=== PATIENT | male | born 1955 | race Caucasian/White ===

== ENCOUNTER 2016-03-12 15:29 | Emergency (ER) | payer OTHER, BC ==
[2016-03-12 16:18] LABS: BASO # 0.1 K/mm3 (0.0-0.2); BASO % 1.5 % (0.0-1.0); EOS # 0.3 K/mm3 (0.0-0.50); EOS % 4.5 % (0.0-3.0); LARGE UNSTAINED CELL # 0.1 K/mm3 (0.0-0.4); LARGE UNSTAINED CELL % 2.4 % (0.0-4.0); LYMPH # 1.7 K/mm3 (1.5-4.5); LYMPH % 27.6 % (24.0-44.0); MEAN CORPUSCULAR HEMOGLOBIN 29.1 pg (27.0-33.0); MEAN CORPUSCULAR HGB CONC 32.4 g/dl (32.0-36.5); MEAN CORPUSCULAR VOLUME 89.9 fl (80.0-96.0); MONO # 0.3 K/mm3 (0.0-0.8); MONO % 5.8 % (0.0-5.0); NEUTROPHILS # 3.3 K/mm3 (1.8-7.7); NEUTROPHILS % 58.2 % (36.0-66.0); PLATELET COUNT, AUTOMATED 217 k/mm3 (150-450); RED CELL DISTRIBUTION WIDTH 12.9 % (11.5-14.5); WHITE BLOOD COUNT 5.7 K/mm3 (4.0-10.0)
--- NOTE | 2016-03-12 16:19 | EDDOCDS ---
Physician Documentation [facility] Name: Sekou Armstrong Age: 60 yrs Sex: Male : 1955 Arrival Date: 03/12/2016 Time: 15:29 Bed I6 / 28 Private MD: Juan R Márquez MD Disposition: 03/12/16 16:10 Discharged to Home/Self Care. Impression: Contact with hypodermic needle - #15 scapel. - Condition is Stable. - Discharge Instructions: Needle Stick Injury, Tudd-ax-Ipnh. - Medication Reconciliation, Local Pharmacy Hours form. - Follow up: . Employee Health Office; When: Call to arrange an appointment; Reason: Further diagnostic work-up, Recheck today's complaints, Continuance of care. - Problem is new. - Symptoms have improved. Historical: - Allergies: no known allergies; - Home Meds: 1. doxycycline hyclate 150 mg oral TbEC once daily 2. Omeprazole Oral once daily - PMHx: Atrial Fib; - PSHx: Hernia repair; Tonsillectomy; Cardiac Ablation; lethroplasty; - Social history: Smoking status: Patient states was never smoker of tobacco. No barriers to communication noted, The patient speaks fluent Nepali, Speaks appropriately for age. - Family history: Not pertinent. - : The pt / caregiver states he / she is not on anticoagulants. Home medication list is obtained from the patient. - Exposure Risk Screening:: None identified. Vital Signs: 03/12 15:31 BP 158 / 87; Pulse 69; Resp 18 S; Temp 97.1(O); Pulse Ox 99% on R/A; Weight 90.72 kg / gr2 200 lbs (R); Height 6 ft. 1 in. (185.42 cm) (R); Pain 4/10; 15:31 Body Mass Index 26.39 (90.72 kg, 185.42 cm) gr2 MDM: 15:39 Consult Employee Health (M-F, 7:30a-4p) or Nursing Clinical Social Worker for source patient ef1 testing ordered. 15:39 Place PEP packet on chart ordered. ef1 15:41 CBC with Diff Ordered. EDMS 15:41 Complete Comphrensive Metabolic Ordered. EDMS 15:41 HIV EXPOSED(ONLY WITH PEP SET) Ordered. EDMS 15:41 Hepatitis B Surface Antibody Ordered. EDMS 15:41 Hepatitis B Surface Antigen Ordered. EDMS 15:44 HEPATITIS C ANTIBODY Ordered. EDMS 15:58 [place] [place] Agreement was scanned into [employer] and attached to record. gjb 15:58 Financial registration complete. gjb 16:12 Wound Care ordered. ef1 16:12 Consult Employee [facility] (-F, 7:30a-4p) or Nursing Clinical Social Worker for source patient ef1 testing complete. Signatures: Dispatcher [employer] EDHI Treasure Doll RN RN dls Feola, Erica, PA-C PA-C ef1 Margy Mccarty RN RN ead Beck, Gabriela gjb The chart was reviewed and I authenticate all verbal orders and agree with the evaluation and treatment provided.Corrections: (The following items were deleted from the chart) 15:44 15:41 HEPATITIS C ANTIBODY+LAB ordered. EDHI EDMS 15:46 15:38 PMHx: lethroplasty; ead ead Attachments: 15:58 [place] [place] Payment Agreement [facility] MTDD
--- NOTE | 2016-03-12 16:19 | EDDOCDS ---
Nurse's Notes [facility] Name: Sekou Armstrong Age: 60 yrs Sex: Male : 1955 Arrival Date: 03/12/2016 Time: 15:29 Bed I6 / Private MD: Juan R Márquez MD Diagnosis: Contact with hypodermic needle-#15 scapel Presentation: 03/12 15:35 Presenting complaint: Patient states: pt operating in OR today, accidently cut self ead with sharp tool, cut to left middle finger. no laceration or open wound noted. Adult Sepsis Screening: The patient does not have new or worsening altered mentation. Patient's respiratory rate is less than 22. Systolic blood pressure is greater than 100. Patient has a qSOFA score of 0- Negative Sepsis Screen. Suicide/Homicide risk assessment- the patient denies having any suicidal and/or homicidal ideations and does not present with any other emotional, behavioral or mental health complaints. Status: Patient is not a cash register servicer or dependent. Transition of care: patient was not received from another setting of care. 15:35 Acuity: ROSITA Level 3 ead 15:35 Method Of Arrival: Walkin/Carried/Asstd ead Triage Assessment: 15:38 General: Appears in no apparent distress, comfortable, well nourished, well groomed, ead Behavior is appropriate for age, cooperative, pleasant. Pain: Denies pain. Neurological: No deficits noted. Respiratory: No deficits noted. Derm: Skin is pink, warm & dry. no open wound to exposure site of underneath side of left middle finger. 15:41 Pt requests HIV screening. Order Generated. ead Historical: - Allergies: no known allergies; - Home Meds: 1. doxycycline hyclate 150 mg oral TbEC once daily 2. Omeprazole Oral once daily - PMHx: Atrial Fib; - PSHx: Hernia repair; Tonsillectomy; Cardiac Ablation; lethroplasty; - Social history: Smoking status: Patient states was never smoker of tobacco. No barriers to communication noted, The patient speaks fluent New Zealander, Speaks appropriately for age. - Family history: Not pertinent. - : The pt / caregiver states he / she is not on anticoagulants. Home medication list is obtained from the patient. - Exposure Risk Screening:: None identified. Screenin:16 Screening information is obtained from the patient. Fall risk: No risks identified. dls Assistance ADL's: requires no assistance with activities of daily living. Abuse/DV Screen: The patient / caregiver reports he/she is: not in a situation that causes fear, pain or injury. Nutritional screening: No deficits noted. Advance Directives: Currently, there is no health care proxy. There is no active DNR order. There is no living will. There is. home support is adequate. Assessment: 16:15 General: Appears in no apparent distress, well developed, well nourished, well groomed, dls Behavior is cooperative. Pain: Denies pain. Neurological: No deficits noted. EENT: No deficits noted. Cardiovascular: No deficits noted. Respiratory: No deficits noted. GI: No deficits noted. : No deficits noted. Derm: No deficits noted. Musculoskeletal: No deficits noted. Vital Signs: 15:31 BP 158 / 87; Pulse 69; Resp 18 S; Temp 97.1(O); Pulse Ox 99% on R/A; Weight 90.72 kg gr2 (R); Height 6 ft. 1 in. (185.42 cm) (R); Pain 4/10; 15:31 Body Mass Index 26.39 (90.72 kg, 185.42 cm) gr2 Vitals: 15:31 Log In Time: March 12, 2016 at 15:31. gr2 ED Course: 15:31 Patient visited by Sara Pierre. gr2 15:31 Juan R Márquez is Private Physician. gr2 15:31 Patient moved to Waiting gr2 15:32 Patient moved to I ms18 15:33 Patient visited by Sara Pierre. gr2 15:37 Triage Initiated ead 15:39 Enid Jacinto PA-C is PHCP. ef1 15:39 Jacquie Jose MD is Attending Physician. ef1 15:40 Patient visited by Enid Jacinto PA-C. ef1 15:54 Patient name changed from Sekou\S\\S\[place]\S\ to Sekou\S\Mar[place]\S\[place]. EDMS 15:58 [place] [place] Payment Agreement was scanned into [employer] and attached to record. gjb 16:10 Employee Health Office, . is Referral Physician. ef1 16:12 Labs drawn. (by ED staff). Sent per order to lab. sew 16:13 Patient visited by Katherine Mcnally. sew 16:13 HEPATITIS C ANTIBODY Sent. sew 16:13 CBC with Diff Sent. sew 16:13 Complete Comphrensive Metabolic Sent. sew 16:13 HIV EXPOSED(ONLY WITH PEP SET) Sent. sew 16:13 Hepatitis B Surface Antibody Sent. sew 16:13 Hepatitis B Surface Antigen Sent. sew 16:16 The patient / caregiver is instructed regarding the plan of care and ED course. dls 16:16 No IV's were initiated during this patient's visit. No procedures done that require dls assistance. Order Results: There are currently no results for this order. Outcome: 16:10 Discharge ordered by Provider. ef1 16:16 Discharge Assessment: Patient awake, alert and oriented x 3. No cognitive and/or dls functional deficits noted. Patient verbalized understanding of disposition instructions. patient administered narcotics - no. The following High Risk Discharge criteria are identified: None. Discharged to home ambulatory. Condition: stable. Discharge instructions given to patient, Instructed on discharge instructions, follow up and referral plans. Demonstrated understanding of instructions, Pt was receptive of discharge instructions/ teaching. No special radiology studies were completed. Property sent home with patient. 16:18 Patient left the ED. dls Signatures: Dispatcher [employer] EDMS Treasure Doll RN Enid Liu PA-C PA-C ef1 Uli Katherine sew Sara Pierre gr2 Margy Mccarty RN RN ead Smith, Mallory, RN RN ms18 Nataliia Edmonds Corrections: (The following items were deleted from the chart) 15:41 15:40 Pt Declines HIV testing. ead ead 15:46 15:38 PMHx: lethroplasty; ead ead MTDD
[2016-03-12 16:46] LABS: ALBUMIN 3.8 GM/DL (3.2-5.2); ALBUMIN/GLOBULIN RATIO 1.23 (1.00-1.93); ALKALINE PHOSPHATASE 78 U/L (45-117); ALT/SGPT 29 U/L (12-78); ANION GAP 6 MEQ/L (8-16); AST/SGOT 15 U/L (15-37); BILIRUBIN,TOTAL 1.4 MG/DL (0.2-1.0); BLOOD UREA NITROGEN 17 MG/DL (7-18); CALCIUM LEVEL 9.1 MG/DL (8.8-10.2); CARBON DIOXIDE LEVEL 28 MEQ/L (21-32); CHLORIDE LEVEL 109 MEQ/L (98-107); CREATININE FOR GFR 0.92 MG/DL (0.70-1.30); GLOMERULAR FILTRATION RATE > 60.0 (>49); GLUCOSE, FASTING 106 MG/DL (80-110); POTASSIUM SERUM 4.7 MEQ/L (3.5-5.1); SODIUM LEVEL 143 MEQ/L (136-145); TOTAL PROTEIN 6.9 GM/DL (6.4-8.2)
[2016-03-12 17:02] LABS: CONTROL LINE INT CTR LINE PRESENT
[2016-03-14 10:10] LABS: HEPATITIS B SURFACE ANTIBODY POSITIVE (POSITIVE)
--- NOTE | 2016-03-14 17:19 | EDDOCDS ---
Nurse's Notes [facility] Name: Sekou Armstrong Age: 60 yrs Sex: Male : 1955 Arrival Date: 03/12/2016 Time: 15:29 Bed I6 / Private MD: Juan R Márquez MD Diagnosis: Contact with hypodermic needle-#15 scapel Presentation: 03/12 15:35 Presenting complaint: Patient states: pt operating in OR today, accidently cut self ead with sharp tool, cut to left middle finger. no laceration or open wound noted. Adult Sepsis Screening: The patient does not have new or worsening altered mentation. Patient's respiratory rate is less than 22. Systolic blood pressure is greater than 100. Patient has a qSOFA score of 0- Negative Sepsis Screen. Suicide/Homicide risk assessment- the patient denies having any suicidal and/or homicidal ideations and does not present with any other emotional, behavioral or mental health complaints. Status: Patient is not a customer service agent or dependent. Transition of care: patient was not received from another setting of care. 15:35 Acuity: ROSITA Level 3 ead 15:35 Method Of Arrival: Walkin/Carried/Asstd ead Triage Assessment: 15:38 General: Appears in no apparent distress, comfortable, well nourished, well groomed, ead Behavior is appropriate for age, cooperative, pleasant. Pain: Denies pain. Neurological: No deficits noted. Respiratory: No deficits noted. Derm: Skin is pink, warm & dry. no open wound to exposure site of underneath side of left middle finger. 15:41 Pt requests HIV screening. Order Generated. ead Historical: - Allergies: no known allergies; - Home Meds: 1. doxycycline hyclate 150 mg oral TbEC once daily 2. Omeprazole Oral once daily - PMHx: Atrial Fib; - PSHx: Hernia repair; Tonsillectomy; Cardiac Ablation; lethroplasty; - Social history: Smoking status: Patient states was never smoker of tobacco. No barriers to communication noted, The patient speaks fluent Norwegian, Speaks appropriately for age. - Family history: Not pertinent. - : The pt / caregiver states he / she is not on anticoagulants. Home medication list is obtained from the patient. - Exposure Risk Screening:: None identified. Screenin:16 Screening information is obtained from the patient. Fall risk: No risks identified. dls Assistance ADL's: requires no assistance with activities of daily living. Abuse/DV Screen: The patient / caregiver reports he/she is: not in a situation that causes fear, pain or injury. Nutritional screening: No deficits noted. Advance Directives: Currently, there is no health care proxy. There is no active DNR order. There is no living will. There is. home support is adequate. Assessment: 16:15 General: Appears in no apparent distress, well developed, well nourished, well groomed, dls Behavior is cooperative. Pain: Denies pain. Neurological: No deficits noted. EENT: No deficits noted. Cardiovascular: No deficits noted. Respiratory: No deficits noted. GI: No deficits noted. : No deficits noted. Derm: No deficits noted. Musculoskeletal: No deficits noted. Vital Signs: 15:31 BP 158 / 87; Pulse 69; Resp 18 S; Temp 97.1(O); Pulse Ox 99% on R/A; Weight 90.72 kg gr2 (R); Height 6 ft. 1 in. (185.42 cm) (R); Pain 4/10; 15:31 Body Mass Index 26.39 (90.72 kg, 185.42 cm) gr2 Vitals: 15:31 Log In Time: March 12, 2016 at 15:31. gr2 ED Course: 15:31 Patient visited by Sara Pierre. gr2 15:31 Juan R Márquez is Private Physician. gr2 15:31 Patient moved to Waiting gr2 15:32 Patient moved to I ms18 15:33 Patient visited by Sara Pierre. gr2 15:37 Triage Initiated ead 15:39 Enid Jacinto PA-C is PHCP. ef1 15:39 Jacquie Jose MD is Attending Physician. ef1 15:40 Patient visited by Enid Jacinto PA-C. ef1 15:54 Patient name changed from Sekou\S\\S\[place]\S\ to Sekou\S\Marino\S\[place]. EDMS 15:58 [place] [place] [place] Payment Agreement was scanned into [employer] and attached to record. gjb 16:10 Employee Health Office, . is Referral Physician. ef1 16:12 Labs drawn. (by ED staff). Sent per order to lab. sew 16:13 Patient visited by Katehrine Mcnally. sew 16:13 HEPATITIS C ANTIBODY Sent. sew 16:13 CBC with Diff Sent. sew 16:13 Complete Comphrensive Metabolic Sent. sew 16:13 HIV EXPOSED(ONLY WITH PEP SET) Sent. sew 16:13 Hepatitis B Surface Antibody Sent. sew 16:13 Hepatitis B Surface Antigen Sent. sew 16:16 The patient / caregiver is instructed regarding the plan of care and ED course. dls 16:16 No IV's were initiated during this patient's visit. No procedures done that require dls assistance. 03/13 11:48 T-Sheet-- Draft Copy was scanned into [employer] and attached to record. gb 11:49 Other: PEP was scanned into [employer] and attached to record. gb Order Results: Lab Order: CBC with Diff; SPEC'M 03/12/16 16:09 Test: WHITE BLOOD COUNT; Value: 5.7; Range: 4.0-10.0; Units: K/mm3; Status: F Test: RED BLOOD COUNT; Value: 5.29; Range: 4.30-6.10; Units: M/mm3; Status: F Test: HEMOGLOBIN; Value: 15.4; Range: 14.0-18.0; Units: g/dl; Status: F Test: HEMATOCRIT; Value: 47.5; Range: 42.0-52.0; Units: %; Status: F Test: MEAN CORPUSCULAR VOLUME; Value: 89.9; Range: 80.0-96.0; Units: fl; Status: F Test: MEAN CORPUSCULAR HEMOGLOBIN; Value: 29.1; Range: 27.0-33.0; Units: pg; Status: F Test: MEAN CORPUSCULAR HGB CONC; Value: 32.4; Range: 32.0-36.5; Units: g/dl; Status: F Test: RED CELL DISTRIBUTION WIDTH; Value: 12.9; Range: 11.5-14.5; Units: %; Status: F Test: PLATELET COUNT, AUTOMATED; Value: 217; Range: 150-450; Units: k/mm3; Status: F Test: NEUTROPHILS %; Value: 58.2; Range: 36.0-66.0; Units: %; Status: F Test: LYMPH %; Value: 27.6; Range: 24.0-44.0; Units: %; Status: F Test: MONO %; Value: 5.8; Range: 0.0-5.0; Abnormal: Above high normal; Units: %; Status: F Test: EOS %; Value: 4.5; Range: 0.0-3.0; Abnormal: Above high normal; Units: %; Status: F Test: BASO %; Value: 1.5; Range: 0.0-1.0; Abnormal: Above high normal; Units: %; Status: F Test: LARGE UNSTAINED CELL %; Value: 2.4; Range: 0.0-4.0; Units: %; Status: F Test: NEUTROPHILS #; Value: 3.3; Range: 1.8-7.7; Units: K/mm3; Status: F Test: LYMPH #; Value: 1.7; Range: 1.5-4.5; Units: K/mm3; Status: F Test: MONO #; Value: 0.3; Range: 0.0-0.8; Units: K/mm3; Status: F Test: EOS #; Value: 0.3; Range: 0.0-0.50; Units: K/mm3; Status: F Test: BASO #; Value: 0.1; Range: 0.0-0.2; Units: K/mm3; Status: F Test: LARGE UNSTAINED CELL #; Value: 0.1; Range: 0.0-0.4; Units: K/mm3; Status: F Lab Order: Complete Comphrensive Metabolic; SPEC'M 03/12/16 16:09 Test: GLUCOSE, FASTING; Value: 106; Range: 80-110; Units: MG/DL; Status: F Test: BLOOD UREA NITROGEN; Value: 17; Range: 7-18; Units: MG/DL; Status: F Test: CREATININE FOR GFR; Value: 0.92; Range: 0.70-1.30; Units: MG/DL; Status: F Test: GLOMERULAR FILTRATION RATE; Value: > 60.0; Range: >49; Status: F Test: SODIUM LEVEL; Value: 143; Range: 136-145; Units: MEQ/L; Status: F Test: POTASSIUM SERUM; Value: 4.7; Range: 3.5-5.1; Units: MEQ/L; Status: F Test: CHLORIDE LEVEL; Value: 109; Range: 98-107; Abnormal: Above high normal; Units: MEQ/L; Status: F Test: CARBON DIOXIDE LEVEL; Value: 28; Range: 21-32; Units: MEQ/L; Status: F Test: ANION GAP; Value: 6; Range: 8-16; Abnormal: Below low normal; Units: MEQ/L; Status: F Test: CALCIUM LEVEL; Value: 9.1; Range: 8.8-10.2; Units: MG/DL; Status: F Test: AST/SGOT; Value: 15; Range: 15-37; Units: U/L; Status: F Test: ALT/SGPT; Value: 29; Range: 12-78; Units: U/L; Status: F Test: ALKALINE PHOSPHATASE; Value: 78; Range: 45-117; Units: U/L; Status: F Test: BILIRUBIN,TOTAL; Value: 1.4; Range: 0.2-1.0; Abnormal: Above high normal; Units: MG/DL; Status: F Test: TOTAL PROTEIN; Value: 6.9; Range: 6.4-8.2; Units: GM/DL; Status: F Test: ALBUMIN; Value: 3.8; Range: 3.2-5.2; Units: GM/DL; Status: F Test: ALBUMIN/GLOBULIN RATIO; Value: 1.23; Range: 1.00-1.93; Status: F Test Note: ; Units are mL/min/1.73 m2 Chronic Kidney Disease Staging per NKF: Stage I & II GFR >=60 Normal to Mildly Decreased Stage III GFR 30-59 Moderately Decreased Stage IV GFR 15-29 Severely Decreased Stage V GFR <15 Very Little GFR Left ESRD GFR <15 on TRIM MOUNTER Lab Order: HIV EXPOSED(ONLY WITH PEP SET); SPEC'M 03/12/16 16:09 Test: HIVEXPOSED0; Value: NEGATIVE; Range: NEGATIVE; Status: F Test: HIV EXPOSED PT 1; Value: NEGATIVE; Range: NEGATIVE; Status: F Test Note: ; This test was performed utilizing a immunochromatographic sandwich principle technique. Sensitivity of the assay is 100%. Specificity of the assay is 99.7%. Lab Order: Hepatitis B Surface Antibody; SPEC'M 03/12/16 16:09 Test: HEPATITIS B SURFACE ANTIBODY; Value: POSITIVE; Range: POSITIVE; Status: F Lab Order: Hepatitis B Surface Antigen; SPEC'M 03/12/16 16:09 Test: HEPATITIS B SURFACE ANTIGEN; Value: NEGATIVE; Range: NEGATIVE; Status: F Lab Order: HEPATITIS C ANTIBODY; SPEC'M 03/12/16 16:09 Test: HEPATITIS C VIRUS GREG INDEX; Value: < 0.0; Range: <0.8; Units: INDEX; Status: F Outcome: 03/12 16:10 Discharge ordered by Provider. ef1 16:16 Discharge Assessment: Patient awake, alert and oriented x 3. No cognitive and/or dls functional deficits noted. Patient verbalized understanding of disposition instructions. patient administered narcotics - no. The following High Risk Discharge criteria are identified: None. Discharged to home ambulatory. Condition: stable. Discharge instructions given to patient, Instructed on discharge instructions, follow up and referral plans. Demonstrated understanding of instructions, Pt was receptive of discharge instructions/ teaching. No special radiology studies were completed. Property sent home with patient. 16:18 Patient left the ED. dls Signatures: Dispatcher [employer] EDMS Treasure Doll RN RN dls Ruby Luna, Jason Reg Enid Flores, PA-C PA-C ef1 Katherine Mcnally Gainslee gr2 Margy Mccarty RN RN ead Smith, Mallory, RN RN ms18 Nataliia Edmonds Corrections: (The following items were deleted from the chart) 15:41 15:40 Pt Declines HIV testing. ead ead 15:46 15:38 PMHx: lethroplasty; ead ead Chart Complete MTDD
--- NOTE | 2016-03-14 17:19 | EDDOCDS ---
Physician Documentation [facility] Name: Sekou Armstrong Age: 60 yrs Sex: Male : 1955 Arrival Date: 03/12/2016 Time: 15:29 Bed I6 / 28 Private MD: Juan R Márquez MD Disposition: 03/12/16 16:10 Discharged to Home/Self Care. Impression: Contact with hypodermic needle - #15 scapel. - Condition is Stable. - Discharge Instructions: Needle Stick Injury, [id number]. - Medication Reconciliation, Local Pharmacy Hours form. - Follow up: . Employee Health Office; When: Call to arrange an appointment; Reason: Further diagnostic work-up, Recheck today's complaints, Continuance of care. - Problem is new. - Symptoms have improved. Historical: - Allergies: no known allergies; - Home Meds: 1. doxycycline hyclate 150 mg oral TbEC once daily 2. Omeprazole Oral once daily - PMHx: Atrial Fib; - PSHx: Hernia repair; Tonsillectomy; Cardiac Ablation; lethroplasty; - Social history: Smoking status: Patient states was never smoker of tobacco. No barriers to communication noted, The patient speaks fluent Maori, Speaks appropriately for age. - Family history: Not pertinent. - : The pt / caregiver states he / she is not on anticoagulants. Home medication list is obtained from the patient. - Exposure Risk Screening:: None identified. Vital Signs: 03/12 15:31 BP 158 / 87; Pulse 69; Resp 18 S; Temp 97.1(O); Pulse Ox 99% on R/A; Weight 90.72 kg / gr2 200 lbs (R); Height 6 ft. 1 in. (185.42 cm) (R); Pain 4/10; 15:31 Body Mass Index 26.39 (90.72 kg, 185.42 cm) gr2 MDM: 15:39 Consult Employee Health (M-F, 7:30a-4p) or Nursing Golf Course Manager for source patient ef1 testing ordered. 15:[address] PEP packet on chart ordered. ef1 15:41 CBC with Diff Ordered. EDMS 15:41 Complete Comphrensive Metabolic Ordered. EDMS 15:41 HIV EXPOSED(ONLY WITH PEP SET) Ordered. EDMS 15:41 Hepatitis B Surface Antibody Ordered. EDMS 15:41 Hepatitis B Surface Antigen Ordered. EDMS 15:44 HEPATITIS C ANTIBODY Ordered. EDMS 15:58 [facility] [place] Payment Agreement was scanned into [employer] and attached to record. gjb 15:58 Financial registration complete. gjb 16:12 Wound Care ordered. ef1 16:12 Consult Employee Health (M-F, 7:30a-4p) or Nursing Golf Course Manager for source patient ef1 testing complete. 03/13 11:48 T-Sheet-- Draft Copy was scanned into [employer] and attached to record. gb 11:49 Other: PEP was scanned into [employer] and attached to record. gb Signatures: Dispatcher [employer] EDTreasure Coon, RN Ruby Nicole, Enid Le PA-C PA-C ef1 Margy Mccarty,RN RN Nataliia Song The chart was reviewed and I authenticate all verbal orders and agree with the evaluation and treatment provided.Corrections: (The following items were deleted from the chart) 03/12 15:44 15:41 HEPATITIS C ANTIBODY+LAB ordered. EDMS EDMS 15:46 15:38 PMHx: lethroplasty; ead ead Attachments: 15:58 [facility] [place] Payment Agreement [facility] 03/13 11:48 T-Sheet-- Draft Copy gb Chart Complete MTDD
--- NOTE | 2016-03-14 17:19 | EDDOCDS ---
Physician Documentation [facility] Name: Sekou Armstrong Age: 60 yrs Sex: Male : 1955 Arrival Date: 03/12/2016 Time: 15:29 Bed I6 / 28 Private MD: Juan R Márquez MD Disposition: 03/12/16 16:10 Discharged to Home/Self Care. Impression: Contact with hypodermic needle - #15 scapel. - Condition is Stable. - Discharge Instructions: Needle Stick Injury, [id number]. - Medication Reconciliation, Local Pharmacy Hours form. - Follow up: . Employee Health Office; When: Call to arrange an appointment; Reason: Further diagnostic work-up, Recheck today's complaints, Continuance of care. - Problem is new. - Symptoms have improved. Historical: - Allergies: no known allergies; - Home Meds: 1. doxycycline hyclate 150 mg oral TbEC once daily 2. Omeprazole Oral once daily - PMHx: Atrial Fib; - PSHx: Hernia repair; Tonsillectomy; Cardiac Ablation; lethroplasty; - Social history: Smoking status: Patient states was never smoker of tobacco. No barriers to communication noted, The patient speaks fluent Belarusian, Speaks appropriately for age. - Family history: Not pertinent. - : The pt / caregiver states he / she is not on anticoagulants. Home medication list is obtained from the patient. - Exposure Risk Screening:: None identified. Vital Signs: 03/12 15:31 BP 158 / 87; Pulse 69; Resp 18 S; Temp 97.1(O); Pulse Ox 99% on R/A; Weight 90.72 kg / gr2 200 lbs (R); Height 6 ft. 1 in. (185.42 cm) (R); Pain 4/10; 15:31 Body Mass Index 26.39 (90.72 kg, 185.42 cm) gr2 MDM: 15:39 Consult Employee Health (M-F, 7:30a-4p) or Nursing Box Storage Worker for source patient ef1 testing ordered. 15:39 Place PEP packet on chart ordered. ef1 15:41 CBC with Diff Ordered. EDMS 15:41 Complete Comphrensive Metabolic Ordered. EDMS 15:41 HIV EXPOSED(ONLY WITH PEP SET) Ordered. EDMS 15:41 Hepatitis B Surface Antibody Ordered. EDMS 15:41 Hepatitis B Surface Antigen Ordered. EDMS 15:44 HEPATITIS C ANTIBODY Ordered. EDMS 15:58 [facility] Payment Agreement was scanned into [employer] and attached to record. gjb 15:58 Financial registration complete. gjb 16:12 Wound Care ordered. ef1 16:12 Consult Employee Health (M-F, 7:30a-4p) or Nursing Box Storage Worker for source patient ef1 testing complete. 03/13 11:48 T-Sheet-- Draft Copy was scanned into [employer] and attached to record. gb 11:49 Other: PEP was scanned into [employer] and attached to record. gb Signatures: Dispatcher [employer] EDTreasure Coon, RN Ruby Nicole, Enid Le PA-C PA-C ef1 Margy Mccarty,RN RN Nataliia Song The chart was reviewed and I authenticate all verbal orders and agree with the evaluation and treatment provided.Corrections: (The following items were deleted from the chart) 03/12 15:44 15:41 HEPATITIS C ANTIBODY+LAB ordered. EDMS EDMS 15:46 15:38 PMHx: lethroplasty; ead ead Attachments: 15:58 [facility] Payment Agreement [facility] 03/13 11:48 T-Sheet-- Draft Copy gb Chart Complete MTDD
== END 2016-03-12 16:18 | disposition home or self-care (01) ==
LOC: M ED 15:29
DX: S61.233A Puncture wound without foreign body of left middle finger without damage to nail, initial encounter (principal); W46.0XXA Contact with hypodermic needle, initial encounter; Y92.234 Operating room of hospital as the place of occurrence of the external cause; Y93.89 Activity, other specified; Y99.0 Civilian activity done for income or pay; I48.91 Unspecified atrial fibrillation; Z90.89 Acquired absence of other organs; Z79.899 Other long term (current) drug therapy

== ENCOUNTER → 2018-11-24 | Outpatient (REF) | payer BC ==
[~2018-11-24] MED LIST: DOXY100C; FLEC10TA PO; IBUP200C29 PO; OMEG10002 PO; OMEP-221; OMEP-221 PO
== END ==
LOC: M SFHCPLAZ 09:45
PROVIDERS: ATTEND Dermatology
DX: D22.9 Melanocytic nevi, unspecified (principal)

== ENCOUNTER 2019-02-10 07:52 | Emergency (ER) | payer BC, OTHER ==
[~2019-02-10] VITALS: Ht 185.4 cm; Wt 93.2 kg
[2019-02-10] MEDS ORDERED: OMEP-221 (08:09)
[2019-02-10] MEDS ORDERED: DOXY100C (08:09)
[2019-02-10] MEDS ORDERED: FLEC10TA PO (08:09)
[2019-02-10 08:26] LABS: BASO # 0.1 10^3/uL (0.0-0.2); BASO % 0.8 % (0.0-1.0); EOS # 0.2 10^3/uL (0.0-0.5); EOS % 2.7 % (0.0-3.0); HEMATOCRIT 52.9 % (42.0-52.0); HEMOGLOBIN 17.2 g/dl (13.5-17.5); LYMPH # 1.7 10^3/uL (1.5-5.0); LYMPH % 28.6 % (24.0-44.0); MEAN CORPUSCULAR HGB CONC 32.5 g/dl (32.0-36.5); MEAN CORPUSCULAR VOLUME 89.1 fl (80.0-96.0); MONO # 0.4 10^3/uL (0.0-0.8); MONO % 7.4 % (0.0-5.0); NEUTROPHILS # 3.6 10^3/uL (1.5-8.5); NEUTROPHILS % 59.8 % (36.0-66.0); PLATELET COUNT, AUTOMATED 274 10^3/uL (150-450); RED BLOOD COUNT 5.94 10^6/uL (4.30-6.10)
--- NOTE | 2019-02-10 08:29 | REP ---
Portable chest x-ray: Single view. History: Chest pain. Findings: The lungs are well inflated and clear. The pleural angles are sharp. Heart size is normal. No significant bony abnormality is seen. Impression: No acute disease. Electronically Signed by Raghav Norton MD 02/10/2019 08:20 A
[2019-02-10] MEDS ORDERED: FLECAINIDE 50MG TABLET PO STA (08:39)
[2019-02-10] MEDS ORDERED: METOPROLOL TART 25 MG TABLET PO ONE (08:45)
[2019-02-10 08:47] VITALS: BP 155/117
[2019-02-10 08:54] LABS: BLOOD UREA NITROGEN 14 MG/DL (7-18); CALCIUM LEVEL 9.1 MG/DL (8.8-10.2); CARBON DIOXIDE LEVEL 25 MEQ/L (21-32); CHLORIDE LEVEL 112 MEQ/L (98-107); CK-MB VALUE MASS 1.6 NG/ML (<3.6); CPK CREATINE PHOSPHOKINASE 79 U/L (39-308); GLOMERULAR FILTRATION RATE > 60.0 (>49); GLUCOSE, FASTING 126 MG/DL (70-100); MB/CK RELATIVE INDEX 2.03 (< OR =4); POTASSIUM SERUM 4.5 MEQ/L (3.5-5.1); SODIUM LEVEL 142 MEQ/L (136-145); TROPONIN I < 0.02 NG/ML (< 0.10)
[2019-02-10 09:26] LABS: FREE THYROXINE INDEX 3.1 % (1.4-3.8); MAGNESIUM LEVEL 2.4 MG/DL (1.8-2.4); T UPTAKE 33 % (33-40); THYROID STIMULATING HORMONE 0.696 uIU/ML (0.358-3.740); THYROXINE (T4) 9.5 UG/DL (4.5-12.0)
[2019-02-10 14:45] VITALS: BP 125/80
--- NOTE | 2019-02-11 07:58 | ECGEPIP ---
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
--- NOTE | 2019-02-11 08:00 | ECGEPIP ---
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
--- NOTE | 2019-02-11 08:02 | ECGEPIP ---
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
[2019-02-11] MEDS ORDERED: IBUP200C29 PO (14:13)
[2019-02-11] MEDS ORDERED: OMEG10002 PO (14:13)
[2019-02-11] MEDS ORDERED: OMEP-221 PO (14:13)
--- NOTE | 2019-02-13 22:01 | ECGEPIP ---
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
== END 2019-02-10 15:07 | disposition home or self-care (01) ==
LOC: M ED 07:52
DX: I48.91 Unspecified atrial fibrillation (principal); R94.31 Abnormal electrocardiogram [ECG] [EKG]; Z79.899 Other long term (current) drug therapy

== ENCOUNTER 2019-02-11 12:03 | Observation (INO) | payer BC ==
[~2019-02-11] VITALS: Ht 190.5 cm; Wt 98.6 kg
[2019-02-11] MEDS: OMEGA-3 1000MG CAPSULE PO SCH (09:00)
[~2019-02-11 12:03] MED LIST changes: -IBUP200C29 PO; -OMEG10002 PO; -OMEP-221 PO
[2019-02-11] MEDS ORDERED: NS 1,000 ML IV SCH (12:17)
[2019-02-11 12:33] LABS: BASO # 0.1 10^3/uL (0.0-0.2); BASO % 0.6 % (0.0-1.0); EOS # 0.2 10^3/uL (0.0-0.5); EOS % 2.7 % (0.0-3.0); HEMATOCRIT 48.5 % (42.0-52.0); HEMOGLOBIN 15.4 g/dl (13.5-17.5); LYMPH # 1.9 10^3/uL (1.5-5.0); MEAN CORPUSCULAR HEMOGLOBIN 28.8 pg (27.0-33.0); MEAN CORPUSCULAR HGB CONC 31.8 g/dl (32.0-36.5); MEAN CORPUSCULAR VOLUME 90.7 fl (80.0-96.0); MONO # 0.5 10^3/uL (0.0-0.8); MONO % 6.1 % (0.0-5.0); NEUTROPHILS # 5.8 10^3/uL (1.5-8.5); NEUTROPHILS % 68.4 % (36.0-66.0); PLATELET COUNT, AUTOMATED 235 10^3/uL (150-450); RED BLOOD COUNT 5.35 10^6/uL (4.30-6.10); WHITE BLOOD COUNT 8.5 10^3/uL (4.0-10.0)
[2019-02-11 12:44] LABS: INR 1.05; PROTHROMBIN TIME 13.4 SECONDS (11.8-14.0)
[2019-02-11 13:14] LABS: ALBUMIN 3.6 GM/DL (3.2-5.2); ALT/SGPT 42 U/L (12-78); BILIRUBIN,DIRECT 0.3 MG/DL (0.0-0.2); BILIRUBIN,TOTAL 1.6 MG/DL (0.2-1.0); BLOOD UREA NITROGEN 19 MG/DL (7-18); CALCIUM LEVEL 8.7 MG/DL (8.8-10.2); CARBON DIOXIDE LEVEL 26 MEQ/L (21-32); CHLORIDE LEVEL 107 MEQ/L (98-107); CK-MB VALUE MASS < 1.0 NG/ML (<3.6); CPK CREATINE PHOSPHOKINASE 76 U/L (39-308); CREATININE FOR GFR 1.12 MG/DL (0.70-1.30); GLOMERULAR FILTRATION RATE > 60.0 (>49); GLUCOSE, FASTING 119 MG/DL (70-100); MB/CK RELATIVE INDEX 1.32 (< OR =4); POTASSIUM SERUM 3.9 MEQ/L (3.5-5.1); SODIUM LEVEL 141 MEQ/L (136-145); TOTAL PROTEIN 6.9 GM/DL (6.4-8.2); TROPONIN I < 0.02 NG/ML (< 0.10)
[2019-02-11] MEDS ORDERED: FLECAINIDE 50MG TABLET PO ONE (13:30)
[2019-02-11] MEDS ORDERED: OMEP-221 PO (14:13)
[2019-02-11] MEDS ORDERED: OMEG10002 PO (14:13)
[2019-02-11] MEDS ORDERED: IBUP200C29 PO (14:13)
--- NOTE | 2019-02-11 15:36 | HPEPDOC ---
[facility] Medical History & Physical Date of Admission Feb 11, 2019 Date of Service: Feb 11, 2019 Attending Physician: MICHELLE SYKES MD History and Physical CHIEF COMPLAINT: Chest discomfort HISTORY OF PRESENT ILLNESS: 63-year-old female with past medical history of atrial fibrillation status post ablation 8 years ago, gastritis, and rosacea presents from home with chest discomfort. He presented to the emergency department yesterday after having episode of A. fib with RVR, treated with flecainide with subsequent development of exertional related, which eventually converted into normal sinus rhythm before he was discharged home. He felt well after going home, reports no issues overnight, exercise in the morning without any difficulty, went outside to shovel snow when he started experiencing chest discomfort, diaphoresis, dyspnea, palpitations, without any obvious precipitating factor. His symptoms resolved upon presenting to the hospital, currently resting comfortable without any complaints. In the ED, EKG is in normal sinus rhythm and cardiac markers are negative. He denies any shortness of breath, chest pain, palpitations, nausea, vomiting, abdominal pain or diarrhea at this time. 10 point review of system is negative except for above PAST MEDICAL HISTORY: 1. Atrial fibrillation. 2. Gastritis. 3. Rosacea. PAST SURGICAL HISTORY: 1. Tonsillectomy. 2. Hernia repair. SOCIAL HISTORY: Never smoker. Social alcohol use. Denies drug use FAMILY HISTORY: Mother with lung cancer ALLERGIES: Please see below. HOME MEDICATIONS: Please see below. PHYSICAL EXAMINATION: VITAL SIGNS: Please see below. GENERAL: No distress HEENT: Normocephalic, atraumatic, moist mucous membranes NECK: Supple CARDIOVASCULAR EXAMINATION: S1, S2, no murmurs RESPIRATORY EXAMINATION: Clear to auscultation, no wheezing ABDOMINAL EXAMINATION: Soft, nontender, nondistended, positive bowel sounds EXTREMITIES: Range of motion intact SKIN: No rash NEUROLOGICAL EXAMINATION: Alert and oriented 3, no focal deficits PSYCHIATRIC EXAMINATION: Calm and cooperative LABORATORY DATA: See below. MICROBIOLOGY: Please see below. ASSESSMENT: 63-year-old male with past medical history of atrial fibrillation status post cardiac ablation, gastritis and rosacea presents with chest discomfort and palpitations. PLAN: 1. Atrial fibrillation. Presented yesterday due to atrial fibrillation with RVR, presented today with dyspnea, diaphoresis, chest discomfort and palpitations. EKG with normal sinus rhythm, troponins negative , will trend, telemetry monitoring, TTE pending, cardiology consultation pending (Dr. Wilburn). 2. Gastritis. Continue home PPI Vital Signs Vital Signs Date Time Temp Pulse Resp B/P (MAP) Pulse Ox O2 Delivery O2 Flow Rate FiO2 02/11/19 14:03 60 94 02/11/19 14:00 136/74 (94) 02/11/19 12:16 Room Air 02/11/19 12:16 97.0 16 Laboratory Data Labs 24H Laboratory Tests 2 02/11/19 12:21: Immature Granulocyte % (Auto) 0.2, Neutrophils (%) (Auto) 68.4H, Lymphocytes (%) (Auto) 22.0L, Monocytes (%) (Auto) 6.1H, Eosinophils (%) (Auto) 2.7, Basophils (%) (Auto) 0.6, Neutrophils # (Auto) 5.8, Lymphocytes # (Auto) 1.9, Monocytes # (Auto) 0.5, Eosinophils # (Auto) 0.2, Basophils # (Auto) 0.1, Nucleated Red Blood Cells % (auto) 0.0, Prothrombin Time 13.4, Prothromb Time International Ratio 1.05, Anion Gap 8, Glomerular Filtration Rate > 60.0, Calcium Level 8.7L, Total Bilirubin 1.6H, Direct Bilirubin 0.3H, Aspartate Amino Transf (AST/SGOT) 18, Alanine Aminotransferase (ALT/SGPT) 42, Alkaline Phosphatase 66, Total Creatine Kinase 76, Creatine Kinase MB < 1.0, Creatine Kinase MB Relative Index 1.32, Troponin I < 0.02, Total Protein 6.9, Albumin 3.6, Albumin/Globulin Ratio 1.09 CBC/BMP Laboratory Tests 02/11/19 12:21 Home Medications Scheduled [place]-3/Dha/Epa/Fish Oil (Fish Oil 1,000 mg Softgel) 1 Each Capsule, 1 CAP PO DAILY Scheduled PRN Ibuprofen (Ibuprofen) 200 Mg Capsule, 400 MG PO QID PRN for PAIN Omeprazole (Omeprazole) 40 Mg Capsule.dr, 40 MG PO DAILY PRN for HEARTBURN Allergies Coded Allergies: No Known Allergies (Unverified , 02/10/19) A-FIB/CHADSVASC A-FIB History Current/History of A-Fib/PAF?: Yes Current PO Anticoag Therapy: No Age/Risk Factor Scoring CHADSVASC: CHADSVASC Response (Comments) Value Age Risk Factor Age 65-74 years old 1 Gender Risk Factor Male 0 Hx of CHF No 0 Hx of HTN No 0 Hx of Stroke/TIA/or VTE No 0 Hx of Diabetes No 0 Hx of Vascular Disease No 0 Total 1 MICHELLE SYKES MD Feb 11, 2019 15:36
--- NOTE | 2019-02-11 15:39 | ECGEPIP ---
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
[2019-02-11 15:52] VITALS: BP 137/83
--- NOTE | 2019-02-11 20:06 | CR ---
DATE OF CONSULTATION: 02/11/2019 CONSULTATION REPORT FOR: Dr. Kriss Pringle REASON FOR CONSULTATION: Dizziness, near syncope, paroxysmal atrial fibrillation. 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 He underwent ablation in [facility] in 2010. Since that time, he had only very rare relapses that typically rapidly corrected by administering a single dose of flecainide 100 mg. He does not have any structural heart disease and does not have any known coronary artery disease. 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 He had more than usual amount of alcohol the night before and woke up around 02:00 a.m. with sensation of palpitations. He took 100 mg of flecainide and after it was not terminating the arrhythmia after approximately one and a half hours, he took a second dose of flecainide. That historically always led to rastafarian of sinus rhythm but after an additional two hours, he still was in atrial fibrillation and came to our emergency room. The evaluation in the ER was unremarkable. It confirmed the presence of atrial fibrillation and he received 25 mg of oral metoprolol and an additional 100 mg of flecainide for a total administered dose 300 mg over the course of approximately six hours. This led to rastafarian of sinus rhythm but he has postconversion pause that was rather long and associated with a near syncopal sensation. He converted actually to junctional rhythm but after additional approximately two hours of observation, sinus rhythm restored and he was discharged home. He felt well for the rest of the day. This morning, he woke up, had his usual workout that involved the treadmill and weight training, and then he played piano for about an hour. Afterwards, he decided to step out of the house and clean some snow. It was not very strenuous activity but shortly after he entered the house, he started experiencing sensation of strong palpitations. He describes the sensation as very strong heartbeat, not necessarily fast or irregular. Shortly thereafter, he started experiencing chest discomfort that he describes as a mild pressure just left from his sternum and then he started feeling dizzy. At that point, he called the ambulance. Before they arrived, he managed to put a pulse oximetry on his finger and it registered that there was some irregularity in his beat that he describes as skipping heartbeats. He does not know what was his heart rate at that point. After arrival of emergency medical reimbursement specialist (EMT), he was taken to the emergency room. No significant arrhythmias were detected and he started feeling better shortly after arrival to the ER and has been feeling well since. The ER evaluation was otherwise unremarkable. He was found to be in sinus rhythm and no significant ectopic beats or pauses were seen. When I saw him in the evening hours, he was comfortably sitting in the chair with his by his side. He has felt well since his arrival to the ER. Telemetry monitoring so far has not revealed any arrhythmias. PAST MEDICAL HISTORY: Paroxysmal atrial fibrillation, as above. He has no history of coronary artery disease and prior evaluation for stress testing and echocardiograms were always normal. There is no history of hypertension, dyslipidemia. PAST SURGICAL HISTORY: Tonsillectomy and hernia repair. 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 He does not smoke. He typically would have one drink a day. No drug use. FAMILY HISTORY: Not relevant to current presentation. His mother from lung cancer. REVIEW OF SYSTEMS: He denies any recent illnesses. No fever, chills, nausea, vomiting, or diarrhea. No chest discomfort. He did not notice any change in his exertional tolerance. There is no history of syncope. The only episode of near syncope occurred in the emergency room yesterday. Today, he was dizzy but near syncopal. The rest of the review of systems is negative. ALLERGIES: He has no known allergies. HOME MEDICATIONS: He takes as-needed flecainide and Motrin and fish oil, occasionally also omeprazole for heartburn but no regular medications. PHYSICAL EXAMINATION: The patient is a 63-year-old man who appears younger than his calendar age. Weight was 98.6 kg. Oriented and appropriate. VITAL SIGNS: Blood pressure 137/83, heart rate in mostly 50s, occasionally low 60s, sinus rhythm, afebrile, saturation 97% on room air. Jugular venous pulse (JVP) is not high. HEART: Reveals a regular rhythm. I do not appreciate any gallop, rub or murmur. LUNGS: Clear. EXTREMITIES: Free of edema. Peripheral pulses are palpable. LABORATORY DATA: Normal CBC. Normal basic metabolic panel and normal three sets of cardiac enzymes. INR is 1.0. ECG reveals the presence of sinus rhythm and minimal nonspecific repolarization abnormalities, unchanged compared to his prior tracings. Chest x-ray is also unremarkable without any infiltrate, cardiomegaly or congestive heart failure. 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 He presented yesterday with yet another episode of atrial fibrillation that was triggered by ethyl alcohol (EtOH) consumption. He reports having a similar episode approximately one month previously, also triggered by alcohol during vacation. Of concern, yesterday he had significant postconversion pause after he received a total of 300 mg of flecainide and today he felt dizzy and the dizziness was associated with palpitations. Of principal concern to me is the possibility of sick sinus syndrome. Typically postconversion pauses after administration of flecainide and metoprolol are due to medications and not due to underlying sick sinus syndrome. Nevertheless, I think it is prudent that we continue monitoring at least overnight. Provided there are no symptoms and no arrhythmia, he can be discharged home tomorrow and we will arrange for longer monitoring on an outpatient basis. I explained to the patient that should there be evidence for pauses without any medication influence then he will unfortunately require placement of pacemaker. As far as the atrial fibrillation is concerned, his CHADS2 vascular score is only 1 so I do not believe he needs to be anticoagulated especially considering very rare events. If there should be additional episodes that are not triggered by alcohol then he will likely need either antiarrhythmics. Unfortunately, the choices are rather limited due to his underlying sinus bradycardia, most likely secondary to very good fitness level, or alternatively he can entertain a second ablation. The plan was discussed with him. Dr. Qureshi covers tonight and I will see him again tomorrow morning. [facility]INVIEW HOSPITALJose Antonio
[2019-02-11 22:00] VITALS: BP 138/73
--- NOTE | 2019-02-11 22:14 | ECHO ---
DATE OF PROCEDURE: 02/11/2019 Date of : 1955 Age: 63 REFERRING PHYSICIAN: Dr. Magdiel Pringle PATIENT LOCATION: Room 4210 REASON FOR ECHOCARDIOGRAM: Abnormal EKG. 2D MEASUREMENTS: IVS: 1.4 cm LV: 5.0 cm LVPW: 1.4 cm LA: 4.6 cm Aorta: 3.4 cm RV: 3.2 cm DOPPLER MEASUREMENTS: Peak velocity across the aortic valve: 1.1 m/s Peak velocity across the LVOT: 0.89 m/s Mitral E: 0.78, mitral A: 0.50 with a ratio of 1.6 Maximum tricuspid valve velocity: 2.0 m/s 2D COMMENTS: 1. Mildly increased left ventricular wall thickness with normal left ventricular size and normal global left ventricular systolic function. The estimated left ventricular systolic ejection fraction is 60 to 65%. 2. Mildly enlarged left atrium. Normal right atrium and right ventricle. 3. The atrial septum appeared to be normal without evidence of defect or shunt. 4. Normal aortic root. 5. No pericardial effusion seen. 6. Mildly calcified aortic valve with normal leaflet excursion. No mitral valve, tricuspid valve, and pulmonic valve. The proximal pulmonary artery branches were not well visualized. 7. The inferior vena cava was not visualized. DOPPLER: It detects trace aortic regurgitation, mild mitral regurgitation, trace tricuspid regurgitation and trace pulmonic regurgitation. The calculated pulmonary artery systolic pressure was normal. Abnormal relaxation pattern was noted across the mitral valve annulus consistent with features of grade 2 left ventricular diastolic dysfunction, left ventricular end-diastolic pressure might be elevated. IMPRESSION 1. Normal global left ventricular systolic function with mild concentric left ventricular hypertrophy. There is some features of grade 2 left ventricular diastolic dysfunction, a pseudonormal pattern was noted across the mitral valve apparatus. 2. Aortic valve sclerosis with trace aortic regurgitation but no aortic stenosis. 3. Mild mitral regurgitation. 4. Trace tricuspid regurgitation with a normal calculated pulmonary artery systolic pressure. 5. Trace pulmonic regurgitation. 6. The inferior vena cava was not visualized. [facility]
[2019-02-12 06:00] VITALS: BP 136/72
[2019-02-12 06:07] LABS: HEMATOCRIT 47.9 % (42.0-52.0); HEMOGLOBIN 15.5 g/dl (13.5-17.5); MEAN CORPUSCULAR HEMOGLOBIN 28.8 pg (27.0-33.0); MEAN CORPUSCULAR HGB CONC 32.4 g/dl (32.0-36.5); MEAN CORPUSCULAR VOLUME 88.9 fl (80.0-96.0); PLATELET COUNT, AUTOMATED 251 10^3/uL (150-450); RED BLOOD COUNT 5.39 10^6/uL (4.30-6.10); WHITE BLOOD COUNT 6.5 10^3/uL (4.0-10.0)
[2019-02-12 06:38] LABS: ALBUMIN 3.5 GM/DL (3.2-5.2); ALT/SGPT 42 U/L (12-78); BILIRUBIN,TOTAL 2.1 MG/DL (0.2-1.0); BLOOD UREA NITROGEN 18 MG/DL (7-18); CALCIUM LEVEL 8.4 MG/DL (8.8-10.2); CARBON DIOXIDE LEVEL 26 MEQ/L (21-32); CHLORIDE LEVEL 110 MEQ/L (98-107); GLOMERULAR FILTRATION RATE > 60.0 (>49); GLUCOSE, FASTING 129 MG/DL (70-100); MAGNESIUM LEVEL 2.4 MG/DL (1.8-2.4); SODIUM LEVEL 141 MEQ/L (136-145); TOTAL PROTEIN 7.1 GM/DL (6.4-8.2)
[2019-02-12] MEDS: OMEGA-3 1000MG CAPSULE PO SCH (08:51)
--- NOTE | 2019-02-12 09:38 | IPN ---
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 He slept well. He ambulated several times around the floor without difficulty. I reviewed the telemetry tracings and there were no arrhythmias. He is somewhat bradycardic at nighttime with heart rate in 50s, but nothing extreme, no pauses and no ventricular ectopy. Vital signs this morning; blood pressure 136/72, heart rate 54. He is afebrile. Saturation 96% on room air. Laboratories reveal normal CBC and essentially normal basic metabolic panel, with the exception of glucose 129. I sent hemoglobin A1c because this is unusual for fasting glucose in patient with no history of diabetes or prediabetes. 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 He now had another episode 2 days ago that was persistent and terminated after administration of a total 300 mg of flecainide. Unfortunately, it was complicated by postconversion pause. He came yesterday with dizziness and sensation of palpitations, but we were not able to record any arrhythmias. At this point, he can be discharged home. I asked him to call me Saturday or Saturday. If he still has dizziness or palpitations, will give him an event recorder, if not, will continue observation. I will schedule a regular followup in first or second week of February.
== END 2019-02-12 11:45 | disposition home or self-care (01) ==
LOC: M ED 12:03 → EDBD 12:03 → M ED INP 12:04 → M MSPAV 15:53
PROVIDERS: ADMIT Internal Medicine; ATTEND Internal Medicine
DX: I48.0 Paroxysmal atrial fibrillation (principal); K29.70 Gastritis, unspecified, without bleeding; L71.9 Rosacea, unspecified; I49.8 Other specified cardiac arrhythmias; R42 Dizziness and giddiness; R55 Syncope and collapse; Z79.899 Other long term (current) drug therapy; Z98.890 Other specified postprocedural states

== ENCOUNTER → 2019-06-19 | Outpatient (CLI) | payer BC ==
[~2019-06-19] MED LIST changes: +IBUP200C29 PO; +OMEG10002 PO; +OMEP-221 PO
== END ==
LOC: M LAB 09:38
PROVIDERS: ATTEND Family Medicine
DX: Z12.5 Encounter for screening for malignant neoplasm of prostate (principal)

== ENCOUNTER → 2019-07-08 | Outpatient (CLI) | payer BC ==
--- NOTE | 2019-07-14 12:16 | SLEEPHOME ---
DATE OF STUDY: 07/08/2019 ORDERED BY: Dr. Sebastian Diagnostic home sleep testing was performed due to concern for the obstructive sleep apnea syndrome in this patient with a history of snoring and nonrestorative sleep who has comorbidity of atrial fibrillation. For testing, a nocturnal T3 respiratory monitoring device was used. Continuous record was made of pulse, oxygen saturation, airflow, chest and abdominal strain and body position. 9 hours and 59 minutes of data were reviewed. There were 7 hours and 35 minutes marked as time in bed. During the interval marked time in bed, there were 137 respiratory events identified of 10 seconds in duration or greater for a respiratory event index of 18. The events were primarily obstructive, however, 57 mixed and central apneas were also noted. Baseline pulse rate 57 beats per minute, pulse rate ranged 46-79. Baseline saturation 93%, saturations fell to 84%. The oxygen desaturation index was 9. Testing was performed in both supine and nonsupine positions. IMPRESSION: Abnormal home sleep testing with repetitive respiratory events and oxygen desaturations to 84% with a respiratory event index of 18 is consistent with the obstructive sleep apnea syndrome. RECOMMENDATION: The patient should be encouraged to undergo formal sleep evaluation. Given the presence of mixed and central apneas, a bilevel titration device may be necessary.
== END ==
LOC: M SLEEP HO 11:50
PROVIDERS: ATTEND Internal Medicine Pulmonary Disease
DX: R06.83 Snoring (principal)

== ENCOUNTER → 2019-07-27 | Outpatient (CLI) | payer BC ==
[2019-07-27 16:28] LABS: HEMATOCRIT 46.5 % (42.0-52.0); HEMOGLOBIN 14.9 g/dl (13.5-17.5); MEAN CORPUSCULAR HEMOGLOBIN 28.5 pg (27.0-33.0); MEAN CORPUSCULAR VOLUME 89.1 fl (80.0-96.0); PLATELET COUNT, AUTOMATED 227 10^3/uL (150-450); RED BLOOD COUNT 5.22 10^6/uL (4.30-6.10)
[2019-07-27 16:48] LABS: BLOOD UREA NITROGEN 17 MG/DL (7-18); CALCIUM LEVEL 8.7 MG/DL (8.8-10.2); CARBON DIOXIDE LEVEL 29 MEQ/L (21-32); CHLORIDE LEVEL 107 MEQ/L (98-107); CREATININE FOR GFR 0.88 MG/DL (0.70-1.30); GLOMERULAR FILTRATION RATE > 60.0 (>49); GLUCOSE, FASTING 88 MG/DL (70-100); POTASSIUM SERUM 4.7 MEQ/L (3.5-5.1); SODIUM LEVEL 139 MEQ/L (136-145)
== END ==
LOC: M WUC 15:06
PROVIDERS: ATTEND Internal Medicine Cardiovascular Disease
DX: Z01.812 Encounter for preprocedural laboratory examination (principal); I48.91 Unspecified atrial fibrillation

== ENCOUNTER → 2019-07-31 | Outpatient (CLI) | payer BC | LOC: M LABSMTC 12:11 | PROVIDERS: ATTEND Internal Medicine Cardiovascular Disease | DX: Z11.59 Encounter for screening for other viral diseases (principal) | CPT/HCPCS: C9803; U0003 ==

== ENCOUNTER 2019-10-04 16:08 | Emergency (ER) | payer BC ==
--- NOTE | 2019-11-06 16:38 | ECGEPIP ---
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
[2019-11-19 09:49] LABS: INR 1.11; PARTIAL THROMBOPLASTIN TIME 28.3 SECONDS (24.2-38.5); PROTHROMBIN TIME 14.5 SECONDS (12.5-14.3)
[2019-11-19 18:37] LABS: BASO % 0.8 % (0.0-1.0); EOS # 0.2 10^3/uL (0.0-0.5); EOS % 3.4 % (0.0-3.0); HEMATOCRIT 47.2 % (42.0-52.0); HEMOGLOBIN 15.1 g/dl (13.5-17.5); LYMPH # 1.5 10^3/uL (1.5-5.0); LYMPH % 28.9 % (24.0-44.0); MEAN CORPUSCULAR HEMOGLOBIN 28.6 pg (27.0-33.0); MEAN CORPUSCULAR VOLUME 89.4 fl (80.0-96.0); MONO # 0.5 10^3/uL (0.0-0.8); MONO % 9.5 % (0.0-5.0); NEUTROPHILS # 2.9 10^3/uL (1.5-8.5); PLATELET COUNT, AUTOMATED 197 10^3/uL (150-450); RED BLOOD COUNT 5.28 10^6/uL (4.30-6.10); WHITE BLOOD COUNT 5.1 10^3/uL (4.0-10.0)
--- NOTE | 2019-11-20 09:03 | REP ---
CHEST X-RAY: 2-VIEWS HISTORY: Chest pain. COMPARISON: Single view chest from 02/10/19. FINDINGS: There is no acute infection or pulmonary edema. The heart is normal in size. The mediastinal silhouette is unremarkable and unchanged. The visualized osseous structures appear intact. IMPRESSION: No evidence of acute pulmonary disease. MTDD
[2019-12-20 03:36] LABS: ALBUMIN 3.6 GM/DL (3.2-5.2); ALT/SGPT 28 U/L (12-78); BILIRUBIN,DIRECT 0.2 MG/DL (0.0-0.2); BILIRUBIN,TOTAL 1.1 MG/DL (0.2-1.0); BLOOD UREA NITROGEN 14 MG/DL (7-18); CALCIUM LEVEL 8.7 MG/DL (8.8-10.2); CARBON DIOXIDE LEVEL 27 MEQ/L (21-32); CHLORIDE LEVEL 113 MEQ/L (98-107); CK-MB VALUE MASS 2.7 NG/ML (<3.6); CPK CREATINE PHOSPHOKINASE 156 U/L (39-308); CREATININE FOR GFR 0.83 MG/DL (0.70-1.30); FREE T4 0.93 NG/DL (0.76-1.46); GLOMERULAR FILTRATION RATE > 60.0 (>49); GLUCOSE, FASTING 103 MG/DL (70-100); MAGNESIUM LEVEL 2.2 MG/DL (1.8-2.4); MB/CK RELATIVE INDEX 1.73 (< OR =4); PHOSPHORUS LEVEL 2.9 MG/DL (2.5-4.9); POTASSIUM SERUM 4.1 MEQ/L (3.5-5.1); SODIUM LEVEL 144 MEQ/L (136-145); THYROID STIMULATING HORMONE 0.382 uIU/ML (0.358-3.740); TOTAL PROTEIN 6.7 GM/DL (6.4-8.2); TROPONIN I < 0.02 NG/ML (< 0.10)
== END 2019-10-04 19:30 | disposition home or self-care (01) ==
LOC: M ED 16:08
DX: I10 Essential (primary) hypertension (principal); I48.91 Unspecified atrial fibrillation; G47.33 Obstructive sleep apnea (adult) (pediatric); Z79.899 Other long term (current) drug therapy

== ENCOUNTER → 2019-12-22 | Outpatient (REF) | LOC: M EMP 07:39 | PROVIDERS: ATTEND Family Medicine | DX: Z20.828 Contact with and (suspected) exposure to other viral communicable diseases (principal) ==

== ENCOUNTER 2020-01-15 09:48 | Emergency (ER) | payer BC ==
[~2020-01-15] VITALS: Ht 185.4 cm; Wt 100.1 kg
[2020-01-15] MEDS ORDERED: DOXY100C PO (10:04)
[2020-01-15] MEDS ORDERED: LOSA50TA88 PO (10:04)
[2020-01-15] MEDS ORDERED: METOPROLOL TART 25 MG TABLET PO ONE (10:30)
[2020-01-15] MEDS ORDERED: APIXABAN 5 MG TAB (ELIQUIS) PO ONE (10:30)
[2020-01-15 10:45] LABS: BASO % 0.6 % (0.0-1.0); EOS # 0.2 10^3/uL (0.0-0.5); EOS % 3.2 % (0.0-3.0); HEMATOCRIT 48.3 % (42.0-52.0); HEMOGLOBIN 15.5 g/dl (13.5-17.5); LYMPH # 1.7 10^3/uL (1.5-5.0); LYMPH % 33.7 % (24.0-44.0); MEAN CORPUSCULAR HEMOGLOBIN 28.3 pg (27.0-33.0); MEAN CORPUSCULAR HGB CONC 32.1 g/dl (32.0-36.5); MEAN CORPUSCULAR VOLUME 88.3 fl (80.0-96.0); MONO # 0.4 10^3/uL (0.0-0.8); MONO % 7.5 % (0.0-5.0); NEUTROPHILS # 2.8 10^3/uL (1.5-8.5); NEUTROPHILS % 54.8 % (36.0-66.0); PLATELET COUNT, AUTOMATED 221 10^3/uL (150-450); RED BLOOD COUNT 5.47 10^6/uL (4.30-6.10); WHITE BLOOD COUNT 5.1 10^3/uL (4.0-10.0)
--- NOTE | 2020-01-15 10:48 | REP ---
INDICATION: CHEST PAIN. COMPARISON: 10/04/2019. TECHNIQUE: SINGLE PORTABLE AP VIEW OF THE CHEST WAS PERFORMED. FINDINGS: THERE IS NO ACUTE INFILTRATE OR PULMONARY EDEMA. LUNGS ARE CLEAR. HEART IS NOT SIGNIFICANTLY ENLARGED. MEDIASTINAL SILHOUETTE IS UNREMARKABLE. THE VISUALIZED OSSEOUS STRUCTURES ARE INTACT. IMPRESSION: NO ACUTE PULMONARY DISEASE. <Electronically signed by Alan Fink > 01/15/20 104
[2020-01-15 11:20] LABS: BLOOD UREA NITROGEN 18 MG/DL (7-18); CALCIUM LEVEL 8.9 MG/DL (8.8-10.2); CARBON DIOXIDE LEVEL 25 MEQ/L (21-32); CHLORIDE LEVEL 111 MEQ/L (98-107); CK-MB VALUE MASS 1.3 NG/ML (<3.6); CPK CREATINE PHOSPHOKINASE 72 U/L (39-308); CREATININE FOR GFR 0.98 MG/DL (0.70-1.30); GLOMERULAR FILTRATION RATE > 60.0 (>49); GLUCOSE, FASTING 124 MG/DL (70-100); MAGNESIUM LEVEL 2.3 MG/DL (1.8-2.4); MB/CK RELATIVE INDEX 1.81 (< OR =4); POTASSIUM SERUM 4.2 MEQ/L (3.5-5.1); SODIUM LEVEL 141 MEQ/L (136-145); THYROID STIMULATING HORMONE 0.943 uIU/ML (0.358-3.740); TROPONIN I < 0.02 NG/ML (< 0.10)
[2020-01-15 11:26] VITALS: BP 138/77
[2020-01-15] MEDS ORDERED: ELIQ5TAB PO (11:45)
[2020-01-15] MEDS ORDERED: METO1TAB87 PO (11:45)
[2020-01-15 12:32] VITALS: BP 154/87
--- NOTE | 2020-01-15 21:39 | ECGEPIP ---
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
== END 2020-01-15 11:57 | disposition home or self-care (01) ==
LOC: M ED 09:48
DX: I48.0 Paroxysmal atrial fibrillation (principal); G47.33 Obstructive sleep apnea (adult) (pediatric); Z79.01 Long term (current) use of anticoagulants; Z79.899 Other long term (current) drug therapy

== ENCOUNTER → 2020-01-31 | Outpatient (CLI) | payer BC ==
[~2020-01-31] MED LIST changes: +DOXY100C PO; +ELIQ5TAB PO; +LOSA50TA88 PO; +METO1TAB87 PO
== END ==
LOC: M LABSMTC 09:57
PROVIDERS: ATTEND Pediatrics
DX: Z11.59 Encounter for screening for other viral diseases (principal)

== ENCOUNTER → 2021-02-24 | Outpatient (REF) ==
[~2021-02-24] MED LIST changes: -DOXY100C; -DOXY100C PO; +DOXY100C3; +DOXY100C3 PO; +FLEC100T27 PO; -FLEC10TA PO
== END ==
LOC: M EMP 15:43
PROVIDERS: ATTEND Family Medicine
DX: Z20.822 Contact with and (suspected) exposure to COVID-19 (principal)

== ENCOUNTER → 2021-03-23 | Outpatient (REF) ==
[~2021-03-23] MED LIST changes: +LOSA50TA28 PO; -LOSA50TA88 PO; -OMEP-221; -OMEP-221 PO; +OMEP40CA5; +OMEP40CA5 PO
== END ==
LOC: M EMP 09:02
PROVIDERS: ATTEND Family Medicine
DX: Z20.822 Contact with and (suspected) exposure to COVID-19 (principal)

== ENCOUNTER 2021-06-02 15:59 | Emergency (ER) | payer BC ==
[~2021-06-02] VITALS: Ht 185.4 cm; Wt 95.5 kg
[2021-06-02] MEDS ORDERED: ASPI1CHW3 PO (16:12)
[2021-06-02] MEDS ORDERED: ROSU20TA5 (16:12)
[2021-06-02 16:42] LABS: BASO % 0.8 % (0.0-1.0); EOS # 0.3 10^3/uL (0.0-0.5); EOS % 6.7 % (0.0-3.0); HEMATOCRIT 45.9 % (42.0-52.0); HEMOGLOBIN 15.4 g/dl (13.5-17.5); LYMPH # 1.4 10^3/uL (1.5-5.0); LYMPH % 27.9 % (24.0-44.0); MEAN CORPUSCULAR HEMOGLOBIN 29.8 pg (27.0-33.0); MEAN CORPUSCULAR HGB CONC 33.6 g/dl (32.0-36.5); MEAN CORPUSCULAR VOLUME 88.8 fl (80.0-96.0); MONO # 0.5 10^3/uL (0.0-0.8); MONO % 9.1 % (2.0-8.0); NEUTROPHILS # 2.8 10^3/uL (1.5-8.5); NEUTROPHILS % 55.1 % (36.0-66.0); PLATELET COUNT, AUTOMATED 230 10^3/uL (150-450); RED BLOOD COUNT 5.17 10^6/uL (4.30-6.10); WHITE BLOOD COUNT 5.1 10^3/uL (4.0-10.0)
[2021-06-02] MEDS ORDERED: ASPIRIN 81 MG CHEW TABLET PO ONE (17:05)
[2021-06-02 17:09] LABS: CK-MB VALUE MASS 2.7 NG/ML (<3.6); MB/CK RELATIVE INDEX 1.9 (< OR =4)
[2021-06-02 17:12] LABS: BLOOD UREA NITROGEN 19 MG/DL (7-18); CALCIUM LEVEL 8.9 MG/DL (8.8-10.2); CARBON DIOXIDE LEVEL 26 MEQ/L (21-32); CHLORIDE LEVEL 107 MEQ/L (98-107); CREATININE FOR GFR 0.91 MG/DL (0.70-1.30); GLOMERULAR FILTRATION RATE > 60.0 (>49); GLUCOSE, FASTING 96 MG/DL (70-100); POTASSIUM SERUM 4.2 MEQ/L (3.5-5.1); SODIUM LEVEL 137 MEQ/L (136-145)
[2021-06-02 17:54] LABS: CK-MB VALUE MASS 1.6 NG/ML (<3.6); MB/CK RELATIVE INDEX 1.23 (< OR =4)
[2021-06-02 18:50] LABS: ALBUMIN 3.9 GM/DL (3.2-5.2); ALT/SGPT 40 U/L (12-78); BILIRUBIN,DIRECT 0.2 MG/DL (0.0-0.2); BILIRUBIN,TOTAL 1.1 MG/DL (0.2-1.0); LIPASE 156 U/L (73-393); THYROID STIMULATING HORMONE 0.889 uIU/ML (0.358-3.740); TOTAL PROTEIN 6.9 GM/DL (6.4-8.2)
[2021-06-02 20:07] LABS: CK-MB VALUE MASS 1.6 NG/ML (<3.6); MB/CK RELATIVE INDEX 1.32 (< OR =4)
[2021-06-02] MEDS ORDERED: ISOVUE-370 76% 100ML VIAL As Ordered ONE (20:31)
[2021-06-02 21:30] VITALS: BP 139/71
== END 2021-06-02 22:12 | disposition left against medical advice (07) ==
LOC: M ED 15:59
DX: R07.9 Chest pain, unspecified (principal); R42 Dizziness and giddiness; R06.02 Shortness of breath; I48.91 Unspecified atrial fibrillation; K21.9 Gastro-esophageal reflux disease without esophagitis; L71.9 Rosacea, unspecified; Z79.899 Other long term (current) drug therapy; Z79.82 Long term (current) use of aspirin
CPT/HCPCS: 36415; 71045; 71275; 80048; 80076; 82550; 82553; 83690; 84443; 84484; 85025; 93005; 93041; 94760; 99285; Q9967

== ENCOUNTER → 2021-08-17 | Outpatient (CLI) | payer BC ==
[~2021-08-17] MED LIST changes: +ASPI1CHW3 PO; +ROSU20TA5
== END ==
LOC: M RAD 12:25
PROVIDERS: ATTEND Family Medicine
DX: M25.511 Pain in right shoulder (principal)

== ENCOUNTER → 2021-08-18 | Outpatient (CLI) | payer BC | LOC: M PLAIMG 06:34 | PROVIDERS: ATTEND Orthopaedic Surgery | DX: M75.101 Unspecified rotator cuff tear or rupture of right shoulder, not specified as traumatic (principal) ==

== ENCOUNTER → 2021-12-19 | Outpatient (REF) | payer BC ==
[2021-12-19 18:10] LABS: CHOLESTEROL RISK RATIO 2.196 (<5)
== END ==
LOC: M LABWUC 16:34
PROVIDERS: ATTEND Family Medicine
DX: I48.0 Paroxysmal atrial fibrillation (principal)

== ENCOUNTER → 2022-02-21 | Outpatient (CLI) | payer BC | LOC: M RAD 18:34 | PROVIDERS: ATTEND Family Medicine | DX: R05.9 Cough, unspecified (principal); R06.00 Dyspnea, unspecified ==

== ENCOUNTER → 2022-04-19 | Outpatient (CLI) | payer BC ==
[2022-04-19 19:14] LABS: BASO # 0.1 10^3/uL (0.0-0.2); BASO % 0.9 % (0.0-1.0); EOS # 0.3 10^3/uL (0.0-0.5); EOS % 5.2 % (0.0-3.0); HEMATOCRIT 44.9 % (42.0-52.0); HEMOGLOBIN 14.5 g/dl (13.5-17.5); LYMPH % 35.1 % (24.0-44.0); MEAN CORPUSCULAR HEMOGLOBIN 29.1 pg (27.0-33.0); MEAN CORPUSCULAR HGB CONC 32.3 g/dl (32.0-36.5); MEAN CORPUSCULAR VOLUME 90.2 fl (80.0-96.0); MONO # 0.4 10^3/uL (0.0-0.8); MONO % 6.9 % (2.0-8.0); NEUTROPHILS % 51.6 % (36.0-66.0); PLATELET COUNT, AUTOMATED 278 10^3/uL (150-450); RED BLOOD COUNT 4.98 10^6/uL (4.30-6.10); WHITE BLOOD COUNT 5.8 10^3/uL (4.0-10.0)
[2022-04-19 19:40] LABS: ALBUMIN 3.9 G/DL (3.2-5.2); ALKALINE PHOSPHATASE 56 U/L (46-116); ALT/SGPT 29 U/L (7.0-40); AST/SGOT 24 U/L (<34); BILIRUBIN,TOTAL 1.8 MG/DL (0.3-1.2); BLOOD UREA NITROGEN 7 MG/DL (9-23); CALCIUM LEVEL 8.8 MG/DL (8.3-10.6); CARBON DIOXIDE LEVEL 29 MMOL/L (20-31); CHLORIDE LEVEL 107 MMOL/L (98-107); GLOMERULAR FILTRATION RATE > 60.0 (>49); GLUCOSE, FASTING 111 MG/DL (74-106); POTASSIUM SERUM 3.7 MMOL/L (3.5-5.1); SODIUM LEVEL 142 MMOL/L (136-145); TOTAL PROTEIN 6.9 G/DL (5.7-8.2)
== END ==
LOC: M WUC 15:58
PROVIDERS: ATTEND Family Medicine
DX: R63.4 Abnormal weight loss (principal); R19.7 Diarrhea, unspecified

== ENCOUNTER → 2022-04-20 | Outpatient (REF) | payer BC | LOC: M LAB REF 09:44 | PROVIDERS: ATTEND Family Medicine | DX: R63.4 Abnormal weight loss (principal); R19.7 Diarrhea, unspecified ==

== ENCOUNTER → 2022-06-05 | Outpatient (CLI) | payer BC ==
[~2022-06-05] MED LIST changes: +ASPI-655 PO; -ASPI1CHW3 PO
[2022-06-06 08:09] LABS: HERPES ZOSTER, VARICELLA IgG >4000 index (Immune >165); MUMPS VIRUS IgG ANTIBODY >300.0 AU/mL (Immune >10.9); RUBEOLA IgG ANTIBODY >300.0 AU/mL (Immune >16.4)
== END ==
LOC: M WUC 08:09
PROVIDERS: ATTEND Family Medicine
DX: Z02.1 Encounter for pre-employment examination (principal)

== ENCOUNTER → 2025-01-28 | Outpatient (RCR) ==
[~2025-01-28] MED LIST changes: -ASPI-655 PO; +ASPI-737 PO; -ROSU20TA5; +ROSU20TA86
== END ==
LOC: M EMP 12-29 08:17
PROVIDERS: ATTEND Family Medicine
DX: Z20.828 Contact with and (suspected) exposure to other viral communicable diseases (principal)